=== PATIENT | female | born 1955 | race Caucasian/White ===

== ENCOUNTER → 2017-05-25 | Outpatient (CLI) | payer MEDICARE, MEDICAID ==
[~2017-05-25] MED LIST: ALBUTEROL0.09 MG/A2 IH; AMOXICILLIN500 MG PO; ATIVAN1 MG PO; AUGMENTIN 875 M1 TAB PO; CELEBREX200 MG PO; CLARITIN10 MG PO; DARVOCET N 1001 TAB PO; IMDUR30 MG PO; IMDUR60 MG PO; LANTUS100 U/ML SC; LISINOPRIL5 MG PO; LOPRESSOR100 MG PO; LOVASTATIN40 MG PO; MEDROL DOSEPAK4 MG PO; METFORMIN1000 MG PO; MS CONTIN; NEURONTIN600 MG PO; NORFLEX100 MG PO; PLAVIX75 MG PO; PRILOSEC40 MG PO; REMERON30 MG PO; RESTORIL30 MG PO; ROBITUSSIN DM120 ML PO; Synthroid,Lev100 MCG PO; TRAMADOL HCL50 MG PO; VIBRAMYCIN100 MG PO; VICODIN; VICODIN 5/500 505 MG PO; VOLTAREN50 M1 PO
== END | disposition home or self-care (01) ==
LOC: RAD 16:22
DX: M16.0 Bilateral primary osteoarthritis of hip (principal); Z98.890 Other specified postprocedural states

== ENCOUNTER → 2017-08-23 | Outpatient (CLI) | payer MEDICARE, MEDICAID | END | disposition home or self-care (01) | LOC: RAD 15:35 | DX: M96.1 Postlaminectomy syndrome, not elsewhere classified (principal); M54.5 Low back pain ==

== ENCOUNTER 2017-09-13 15:33 | Emergency (ER) | payer MEDICARE ==
[~2017-09-13] VITALS: Wt 79.4 kg
[2017-09-13 15:42] VITALS: BP 151/85
[2017-09-13] MEDS ORDERED: ROBITUSSIN DM 105 ML PO (16:23)
== END 2017-09-13 17:02 | disposition home or self-care (01) ==
LOC: ED 15:33
DX: R05 Cough (principal); R03.0 Elevated blood-pressure reading, without diagnosis of hypertension; F17.200 Nicotine dependence, unspecified, uncomplicated; Z90.710 Acquired absence of both cervix and uterus; Z98.890 Other specified postprocedural states; Z79.899 Other long term (current) drug therapy; Z88.1 Allergy status to other antibiotic agents; Z88.6 Allergy status to analgesic agent; Z88.5 Allergy status to narcotic agent

== ENCOUNTER 2018-04-07 17:20 | Emergency (ER) | payer MEDICARE ==
[~2018-04-07] VITALS: Ht 167.6 cm; Wt 79.4 kg
[~2018-04-07 17:20] MED LIST changes: +ROBITUSSIN DM 105 ML PO
[2018-04-07 17:25] VITALS: BP 110/80
== END 2018-04-07 18:45 | disposition home or self-care (01) ==
LOC: ED 17:20
DX: M25.561 Pain in right knee (principal); M06.9 Rheumatoid arthritis, unspecified; Z90.710 Acquired absence of both cervix and uterus; Z98.890 Other specified postprocedural states; Z79.899 Other long term (current) drug therapy; Z88.1 Allergy status to other antibiotic agents; Z88.8 Allergy status to other drugs, medicaments and biological substances; Z88.5 Allergy status to narcotic agent; Z88.6 Allergy status to analgesic agent; W19.XXXA Unspecified fall, initial encounter; Y93.89 Activity, other specified; Y92.090 Kitchen in other non-institutional residence as the place of occurrence of the external cause; Y99.9 Unspecified external cause status

== ENCOUNTER → 2019-03-13 | Day surgery (SDC) | payer MEDICARE ==
[~2019-03-13] VITALS: Ht 165.1 cm; Wt 79.4 kg
[~2019-03-13] MED LIST changes: +AMARYL2 MG PO; +BUSPAR15 MG PO; +EMBEDA ER 50-21 EACH PO; +IMDUR SA60 M1 PO; -IMDUR60 MG PO; +LANTUS SOL100 UNIT/1 SQ; -LANTUS100 U/ML SC; +NORCO 5-325 TA1 EACH PO; +VICODIN 5-3001 EACH PO; +VISTARIL25 MG PO
== END | disposition home or self-care (01) ==
LOC: SDC 02-18 08:00
DX: R22.2 Localized swelling, mass and lump, trunk (principal)

== ENCOUNTER → 2021-03-17 | Outpatient (CLI) | payer MEDICARE ==
[2021-03-17 15:55] LABS: BASO # 0.1 10*3/uL (0.0-0.1); BASO % 0.5 % (0.0-1.0); EOS # 0.1 10*3/uL (0.0-0.4); EOS % 1.3 % (1.0-4.0); HEMATOCRIT 39.9 % (37.0-47.0); LYMPH # 2.8 10*3/uL (1.3-4.4); LYMPH % 29.2 % (27.0-41.0); MEAN CELL VOLUME 88.7 fl (81.0-99.0); MEAN CORPUSCULAR HGB 28.7 pg (27.0-31.0); MEAN CORPUSCULAR HGB CONC 32.3 g/dl (33.0-37.0); MONO # 0.7 10*3/uL (0.1-1.0); MONO % 7.3 % (3.0-9.0); NEUT # 5.9 10*3/uL (2.3-7.9); NEUT % 61.4 % (47.0-73.0); PLATELET COUNT AUTOMATED 407 10*3/uL (130-400); RED CELL DISTRI WIDTH 14.6 % (0-14.5); WHITE BLOOD COUNT 9.6 10*3/uL (4.8-10.8)
[2021-03-17 16:23] LABS: ALBUMIN 3.5 gm/dl (3.1-4.5); CREATININE 1.12 mg/dL (0.55-1.02); POTASSIUM 4.2 mmol/L (3.5-5.1); TOTAL PROTEIN 7.7 gm/dL (6.4-8.2)
[2021-03-17 16:24] LABS: FREE T4 1.11 ng/dl (0.76-1.46)
[2021-03-17 16:28] LABS: THYROID STIM HORMONE (HS) 0.796 uIU/ml (0.358-4.75)
[2021-03-17 16:29] LABS: VITAMIN D, 25-HYDROXY 11.4 ng/mL (30-100)
== END | disposition home or self-care (01) ==
LOC: RAD 13:30 → MAMMO 14:00 → LAB 14:11
PROVIDERS: ATTEND Internal Medicine
DX: Z12.31 Encounter for screening mammogram for malignant neoplasm of breast (principal); I10 Essential (primary) hypertension; E11.9 Type 2 diabetes mellitus without complications; E03.9 Hypothyroidism, unspecified; E78.2 Mixed hyperlipidemia; E55.9 Vitamin D deficiency, unspecified; Z00.01 Encounter for general adult medical examination with abnormal findings; Z78.0 Asymptomatic menopausal state

== ENCOUNTER → 2021-03-31 | Outpatient (CLI) | payer MEDICARE | END | disposition home or self-care (01) | LOC: MAMMO 13:00 | PROVIDERS: ATTEND Internal Medicine | DX: R92.8 Other abnormal and inconclusive findings on diagnostic imaging of breast (principal) ==

== ENCOUNTER → 2024-02-26 | Outpatient (CLI) | payer OTHER | END | disposition home or self-care (01) | LOC: CARD 00:07 | PROVIDERS: ATTEND Internal Medicine | DX: R06.02 Shortness of breath (principal) ==